=== PATIENT | female | born 1985 | race Caucasian/White ===

== ENCOUNTER 2023-01-08 20:30 | Emergency (ER) | payer OTHER ==
[~2023-01-08] VITALS: Ht 170.2 cm; Wt 63.5 kg
[2023-01-09] MEDS ORDERED: BUPR-96 PO (00:24)
[2023-01-09] MEDS ORDERED: AMPH15TA2 PO (00:24)
[2023-01-09] MEDS ORDERED: SERT100T PO (00:24)
[2023-01-09] MEDS ORDERED: HYDROMORPHONE HCL 2 MG TABLET PO ONE (00:45)
[2023-01-09] MEDS ORDERED: CLINDAMYCIN HCL 150 MG CAPSULE PO ONE (00:45)
[2023-01-09] MEDS ORDERED: CLINDAMYCIN HCL 150 MG CAPSULE ONE (00:55)
[2023-01-09] MEDS ORDERED: HYDROMORPHONE HCL 2 MG TABLET ONE (00:56)
[2023-01-09] MEDS ORDERED: LIDOCAINE 2% (GLYDO= UROJET) 10 ML JELLY MM ONE ×2 (01:09→01:15)
[2023-01-09] MEDS ORDERED: DOXYCYCLINE HYCLATE 100 MG TABLET PO ONE (01:15)
[2023-01-09] MEDS ORDERED: CEFTRIAXONE 500 MG VIAL IM ONE (01:15)
[2023-01-09] MEDS ORDERED: DOXYCYCLINE HYCLATE 100 MG TABLET ONE (01:16)
[2023-01-09] MEDS ORDERED: CEFTRIAXONE 500 MG VIAL ONE (01:16)
[2023-01-09] MEDS ORDERED: LIDOCAINE HCL 1% 20 ML VIAL ONE (01:17)
[2023-01-09 01:29] LABS: *BLOOD, URINE 2+ (NEGATIVE); *COLOR,URINE YELLOW (YELLOW); *KETONES,URINE TRACE (NEGATIVE); *PROTEIN,URINE TRACE (NEGATIVE); *UROBILINOGEN,URINE >=8.0 E.U./dl (NORMAL); LEUKOCYTE ESTERASE ,URINE 1+ (NEGATIVE); NITRITE, URINE NEGATIVE (NEGATIVE); UGLUCOSE NEGATIVE (NEGATIVE)
[2023-01-09 01:32] LABS: *BILIRUBIN,URIN 1+ (NEGATIVE); *CLARITY,URINE HAZY (CLEAR)
[2023-01-09 01:33] LABS: *URINE HCG, QUAL NEGATIVE (NEGATIVE)
[2023-01-09 02:00] LABS: BACTERIA,URINE FEW /HPF (NONE SEEN); SQUAMOUS EPITHELIAL CELL,UR FEW /HPF (NONE SEEN); URINE AMORPHOUS URATE MODERATE /HPF
[2023-01-09] MEDS ORDERED: DOXY100T2 PO (02:09)
[2023-01-09] MEDS ORDERED: LIDO5JEL4 TP (02:09)
[2023-01-09] MEDS ORDERED: CLIN300C12 PO (02:09)
[2023-01-09] MEDS ORDERED: ACYC-108 PO (02:09)
[2023-01-09] MEDS ORDERED: ACYCLOVIR 200 MG CAPSULE ONE ×2 (02:13→02:16)
[2023-01-09] MEDS ORDERED: ACYCLOVIR 400 MG TABLET PO ONE (02:15)
[2023-01-09 02:21] VITALS: BP 117/64; O2SAT 100
[2023-01-11 09:07] LABS: *TRIC.VAG. NAA Negative (Negative)
[2023-01-12 01:06] LABS: *CHLAMYDIA NAA Negative (Negative); *GC NAA Negative (Negative)
== END 2023-01-09 02:21 | disposition home or self-care (01) ==
LOC: ER 20:34
DX: A57 Chancroid (principal); L03.116 Cellulitis of left lower limb; N76.6 Ulceration of vulva; F19.90 Other psychoactive substance use, unspecified, uncomplicated; F17.210 Nicotine dependence, cigarettes, uncomplicated; Z71.6 Tobacco abuse counseling; Z88.2 Allergy status to sulfonamides; Z88.8 Allergy status to other drugs, medicaments and biological substances; Z79.899 Other long term (current) drug therapy
CPT/HCPCS: 99284; 99406; 81001; 84703; 87210; 96372; 87491; J0696; J3490; A4663